=== PATIENT | female | born 1990 | race Hispanic/Latino ===

== ENCOUNTER 2017-09-15 16:36 | Emergency (ER) | payer OTHER ==
[2017-09-15 17:18] VITALS: BP 129/71; PULSE 102; RESP 16; TEMP 98.9; O2SAT 99
--- NOTE | 2017-09-15 18:26 | ED PDOC ---
Upper Extremity Pain/Injury Time Seen by Provider: 09/15/17 17:49 Chief Complaint (Nursing): Upper Extremity Problem/Injury Chief Complaint (Provider): Right hand pain History Per: Patient History/Exam Limitations: no limitations Onset/Duration Of Symptoms: Days (7) Additional Complaint(s): Patient is a 26 y/o female with no significant past medical history presenting to the emergency department for right hand pain ongoing x 1 week with associated redness and swelling since last night. Reports that she was stung by a sea urchin in her right hand in [place] one week ago and was given cephalexin for treatment. Reports compliance with antibiotic course but notes that last night she developed a "hot," odd feeling in her right arm in addition to swelling and redness in her right middle finger. Denies weakness, fever, chills , or other complaints. PCP: none provided Past Medical History Reviewed: Historical Data, Nursing Documentation, Vital Signs Vital Signs: Last Vital Signs Temp 98.9 F 09/15/17 17:12 Pulse 102 H 09/15/17 17:12 Resp 16 09/15/17 17:12 BP 129/71 09/15/17 17:12 Pulse Ox 99 09/15/17 17:12 - Medical History PMH: No Chronic Diseases - Family History Family History: States: Unknown Family Hx - Home Medications Home Medications: Ambulatory Orders Medication Instructions Recorded Doxycycline Hyclate 100 mg PO BID #20 cap 09/15/17 - Allergies Allergies/Adverse Reactions: Allergies Allergy/AdvReac Type Severity Reaction Status Date / Time No Known Allergies Allergy Verified 09/15/17 17:14 Review of Systems ROS Statement: Except As Marked, All Systems Reviewed And Found Negative Constitutional: Negative for: Fever, Chills Musculoskeletal: Positive for: Arm Pain ("hot" sensation on right arm), Other ( right middle finger pain with swelling and redness) Neurological: Negative for: Weakness Physical Exam - Reviewed Nursing Documentation Reviewed: Yes Vital Signs Reviewed: Yes - Physical Exam Appears: Positive for: Well, Non-toxic, No Acute Distress Head Exam: Positive for: ATRAUMATIC Skin: Positive for: Normal Color, Warm, Dry Eye Exam: Positive for: Normal appearance Neck: Positive for: Normal Cardiovascular/Chest: Positive for: Regular Rate, Rhythm Respiratory: Negative for: Accessory Muscle Use, Respiratory Distress Pulses-Radial (R): 2+ Extremity: Positive for: Normal ROM, Tenderness (on palpation), Capillary Refill (normal), Swelling (with erythema and streaks noted to the volar aspect of third digit), Other (sea urchin spines noted on third digit) Neurologic/Psych: Positive for: Alert, Oriented (x3) - Laboratory Results Result Diagrams: 09/15/17 18:10 09/15/17 19:20 - ECG O2 Sat by Pulse Oximetry: 99 (RA) Pulse Ox Interpretation: Normal Medical Decision Making Medical Decision Making: Time: 18:06 Initial impression: Right hand pain Initial plan: Labs: CMP and CBC pt with normal CBC, hemolyzed K+ will repeat-normal pt with cellulites but advised strongly to have plastic consult for eval and or removal of spines from urchin. Rx doxycline and f/u with plastic surgeon ~ Scribe Attestation: Documented by Constance Rivas, acting as a scribe for ALBAN Kennedy. Provider Scribe Attestation: All medical record entries made by the Scribe were at my direction and personally dictated by me. I have reviewed the chart and agree that the record accurately reflects my personal performance of the history, physical exam, medical decision making, and the department course for this patient. I have also personally directed, reviewed, and agree with the discharge instructions and disposition. Disposition - Clinical Impression Clinical Impression: Marine animal sting - Patient ED Disposition Is Patient to be Admitted: No Counseled Patient/Family Regarding: Studies Performed, Diagnosis, Need For Followup, Rx Given - Disposition Referrals: Ethan Cueto MD [Staff Provider] - Disposition: Routine/Home Disposition Time: 19:47 Condition: STABLE Prescriptions: Doxycycline Hyclate 100 mg PO BID #20 cap Instructions: Marine Animal Bite or Sting (ED)
[2017-09-15 18:32] LABS: BASO % 0.2 % (0.0-2.0); EOS # 0.1 K/uL (0.0-0.7); EOS % 1.3 % (0.0-4.0); HEMATOCRIT 48.4 % (34.0-47.0); LYMPH # 1.7 K/uL (1.0-4.3); LYMPH % 24.4 % (20.0-40.0); MEAN CELL VOLUME 95.7 fl (81.0-99.0); MEAN CORPUSCULAR HEMOGLOBIN 30.7 pg (27.0-31.0); MEAN CORPUSCULAR HGB CONC 32.1 g/dL (33.0-37.0); MEAN PLATELET VOLUME 9.7 fl (7.2-11.7); MONO # 0.3 K/uL (0.0-0.8); MONO % 4.8 % (0.0-10.0); NEUT # 4.7 K/uL (1.8-7.0); NEUT % 69.3 % (50.0-75.0); NRBC % 0.1 % (0.0-0.0); RED CELL DISTRIBUTION WIDTH 13.8 % (11.5-14.5); WHITE BLOOD COUNT 6.8 K/uL (4.8-10.8)
[2017-09-15 18:36] LABS: ALB/GLOB RATIO 1.3 (1.0-2.1); ALKALINE PHOSPHATASE 46 U/L (38-126); ALT/SGPT 18 U/L (9-52); AST/SGOT 42 U/L (14-36); BILIRUBIN,TOTAL 1.3 mg/dl (0.2-1.3); BLOOD UREA NITROGEN 12 mg/dl (7-17); CALCIUM 8.6 mg/dL (8.4-10.2); CARBON DIOXIDE 22 mmol/L (22-30); CHLORIDE 109 mmol/L (98-107); GFR AFRICAN-AMERICAN > 60; GLUCOSE,RANDOM 95 mg/dL (65-105); SODIUM 141 mmol/l (132-148); TOTAL PROTEIN 8.1 G/DL (6.3-8.2)
[2017-09-15 18:49] LABS: POTASSIUM 5.6 MMOL/L (3.6-5.0)
== END 2017-09-15 20:28 | disposition home or self-care (01) ==
LOC: H.ER 16:36
DX: M79.641 Pain in right hand (principal); W56.51XA Bitten by other fish, initial encounter; Y92.89 Other specified places as the place of occurrence of the external cause